=== PATIENT | male | born 1955 | race African-American/Black ===

== ENCOUNTER 2019-02-21 14:40 | Observation (INO) ==
--- NOTE | 2019-02-21 15:10 | Diag Imaging Result Doc PS360 ---
EXAM : CT HEAD/C-SPINE W/O CONTRAST HISTORY: fall, possible head injury, intox TECHNIQUE: 1. CT head without contrast 2. CT cervical spine without contrast COMPARISON: None. FINDINGS: Head: No parenchymal hemorrhage. No epidural or subdural hematoma. No subarachnoid hemorrhage. Chronic microvascular ischemic changes. 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 No mass identified on this noncontrasted exam. No hydrocephalus. No skull fracture. Cervical spine: Motion degrades image quality. There is good alignment to the cervical spine. No precervical soft tissue swelling. No subluxation. No fracture. Prominent degenerative changes. IMPRESSION: Head: No hemorrhage. No injury. Cervical spine: Motion degrades image quality and there are prominent degenerative changes, however, no definite fracture identified. This exam was performed using automated exposure control, adjustment of mA or kV according to patient size, and/or use of iterative reconstruction technique. Electronically signed by Zach Gifford 02/21/2019 3:08 PM
[2019-02-21 16:24] LABS: BASO# 0.12 X1000 (0.0-0.2); BASO% 1.4 % (0.0-0.8); EOS# 0.14 X1000 (0.0-0.7); EOS% 1.6 % (0.0-10.0); HEMATOCRIT 38.5 % (42.0-52.0); HEMOGLOBIN 12.8 g/dL (14.0-18.0); IMM GRAN# 0.02 X1000 (0.0-0.04); IMM GRAN% 0.2 % (0.0-0.5); LYMPH# 4.08 X1000 (1.2-3.4); LYMPH% 47.9 % (20.5-51.1); MCH 29.8 PG (27-31); MCHC 33.2 g/dL (33-37); MCV 89.5 FL (81-99); MONO# 0.63 X1000 (0.11-0.59); MONO% 7.4 % (1.7-9.3); MPV 9.4 FL (7.4-10.4); NEUT# 3.52 X1000 (1.4-6.5); NEUT% 41.5 % (42.2-75.2); PLT 276 X1000 (130-400); RDW 16.3 % (11.5-14.5); WBC 8.51 X1000 (4.8-10.8)
--- NOTE | 2019-02-21 16:45 | Diag Imaging Result Doc PS360 ---
EXAM: CT HEAD W/O CONTRAST HISTORY: fall TECHNIQUE: CT head without contrast COMPARISON: Films taken earlier FINDINGS: No parenchymal hemorrhage. No epidural or subdural hematoma. No subarachnoid hemorrhage. There are chronic microvascular ischemic changes and an old right cerebellar infarct. No mass identified on this noncontrasted exam. No hydrocephalus. No skull fracture. IMPRESSION: No hemorrhage. No change. This exam was performed using automated exposure control, adjustment of mA or kV according to patient size, and/or use of iterative reconstruction technique. Electronically signed by Zach Gifford 02/21/2019 4:43 PM
[2019-02-21 16:47] LABS: UR AMPHETAMINES QUAL NONE DETECTED (NONE DETECT); UR BARBITUATES QUAL NONE DETECTED (NONE DETECT); UR BENZODIAZEPIN QUAL NONE DETECTED (NONE DETECT); UR CANNABINOIDS QUAL NONE DETECTED (NONE DETECT); UR COCAINE QUAL NONE DETECTED (NONE DETECT); UR METHADONE QUAL NONE DETECTED (NONE DETECT); UR OPIATES QUAL NONE DETECTED (NONE DETECT); UR OXYCODONE QUAL NONE DETECTED (NONE DETECT); UR PCP QUAL NONE DETECTED (NONE DETECT)
[2019-02-21 17:08] LABS: AGAP 16; ALB/GLOB RATIO 1.1; ALBUMIN 4.4 g/dL (3.5-5.0); ALKALINE PHOSPHATASE 61 U/L (32-122); BUN 13 mg/dL (8-22); CALCIUM 9.7 mg/dL (8.8-10.2); CHLORIDE 108 mmol/L (98-107); COSMO 288; CREATININE 0.9 mg/dL (0.7-1.2); ESTIMATED GFR > 60; GLUCOSE 109 mg/dL (70-104); GOT 30 U/L (10-34); GPT 12 U/L (10-44); POTASSIUM 4.4 mmol/L (3.5-5.1); SODIUM 144 mmol/L (136-145); TCO2 20 mmol/L (25-35); TOTAL BILIRUBIN < 0.15 mg/dL (0.20-1.00); TOTAL PROTEIN 8.5 g/dL (6.3-8.3)
[2019-02-21] MEDS ORDERED: M.V.I.-12 10 ML, FOLIC ACID 1 MG, MAGNESIUM SULFATE 1 GM, THIAMINE 100 MG in NS 1,000 ML IV ONE (17:15)
[2019-02-21] MEDS ORDERED: NS 1,000 ML IV ONE (17:15)
--- NOTE | 2019-02-21 18:34 | HISTORY AND PHYSICAL ---
HISTORY OF PRESENT ILLNESS: This is a 63-year-old, black male. The story is that he fell, was brought to the emergency room, and he fell again. X-rays did not show any fractures. CT of his head with no hemorrhage or change. He is awake. His alcohol level is 400. Head and cervical CT without any fractures, no hemorrhage, no injury. Cervical spine did not show any fractures either. The patient was pleasant. He really could not give much history. He had a friend with him who did not know much about his history either. PHYSICAL EXAMINATION: VITAL SIGNS: His temperature is 97.5 degrees, pulse 79, respirations 18, blood pressure 108/73. Weight 150 pounds, height 6 feet. HEENT: Pupils are equal and round. LUNGS: Clear in all lung chicas. CARDIOVASCULAR: Regular rhythm and rate without murmur or S3. ABDOMEN: Soft, nondistended. SKIN: Warm and dry. He had no skin rashes. He had no oral or nasal mucosa lesions. LABORATORY DATA: White count 8510, hematocrit 38, hemoglobin 12, platelet count is 276,000. Sodium 144, potassium 4.4, chloride 108, BUN 13, creatinine 0.9, blood sugar 109, calcium 9.7. AST is 30, ALT is 12, alkaline phosphatase 61, albumin of 4.4. Urine drug screen, negative for opiates, oxycodone, methadone, barbiturates, phencyclidine, amphetamines, benzodiazepines, cocaine, and cannabinoids. Ethanol level is 435 mg/dL. ASSESSMENT AND PLAN: Alcohol intoxication with a couple of falls. Not sure about the history, but I think he has a long history of drinking. So, we will look for alcohol withdrawals and possible delirium tremens. I do not have any other past medical history. He does not show any sign of liver dysfunction at this point, his blood counts look good, and he appears to be hemodynamically stable. cc: Jefferson Palmer MD
[2019-02-21] MEDS ORDERED: ZOFRAN IV PRN (19:18)
[2019-02-21] MEDS ORDERED: ATIVAN IV PRN (19:18)
[2019-02-21] MEDS ORDERED: TYLENOL PO PRN (19:18)
[2019-02-21] MEDS ORDERED: ATIVAN ONE (19:27)
[2019-02-21] MEDS: NS 1,000 ML IV SCH (23:30)
[2019-02-22] MEDS: NS 1,000 ML IV SCH ×2 (05:38→16:33)
[2019-02-22 07:24] LABS: BASO# 0.09 X1000 (0.0-0.2); EOS# 0.09 X1000 (0.0-0.7); LYMPH# 2.23 X1000 (1.2-3.4); LYMPH% 24.6 % (20.5-51.1); MCH 29.7 PG (27-31); MCHC 32.4 g/dL (33-37); MCV 91.6 FL (81-99); MONO# 0.78 X1000 (0.11-0.59); MONO% 8.6 % (1.7-9.3); MPV 9.2 FL (7.4-10.4); NEUT# 5.88 X1000 (1.4-6.5); NEUT% 64.8 % (42.2-75.2); PLT 238 X1000 (130-400); RBC 4.04 XMIL (4.7-6.1); RDW 16.7 % (11.5-14.5); WBC 9.07 X1000 (4.8-10.8)
[2019-02-22 07:38] LABS: AGAP 17; ALB/GLOB RATIO 1.1; ALBUMIN 3.9 g/dL (3.5-5.0); ALKALINE PHOSPHATASE 59 U/L (32-122); BUN 10 mg/dL (8-22); CALCIUM 8.6 mg/dL (8.8-10.2); CHLORIDE 110 mmol/L (98-107); COSMO 288; CREATININE 0.8 mg/dL (0.7-1.2); ESTIMATED GFR > 60; GLUCOSE 78 mg/dL (70-104); GOT 26 U/L (10-34); GPT 10 U/L (10-44); MAGNESIUM 1.8 mg/dL (1.5-2.7); POTASSIUM 4.2 mmol/L (3.5-5.1); SODIUM 146 mmol/L (136-145); TCO2 19 mmol/L (25-35); TOTAL BILIRUBIN 0.18 mg/dL (0.20-1.00); TOTAL PROTEIN 7.6 g/dL (6.3-8.3)
[2019-02-22] MEDS ORDERED: M.V.I.-12 10 ML, FOLIC ACID 1 MG, MAGNESIUM SULFATE 1 GM, THIAMINE 100 MG in NS 1,000 ML IV SCH (09:00)
[2019-02-22 15:15] VITALS: BP 143/83
== END 2019-02-22 18:47 | disposition home or self-care (01) ==
LOC: EDBD → ED 14:40 → 3N 20:34 → INTOOBSV 20:34
PROVIDERS: ATTEND Emergency Medicine